=== PATIENT | female | born 1935 | race Caucasian/White ===

== ENCOUNTER 2016-12-23 10:15 | Day surgery (SDC) | payer MEDICARE, OTHER ==
[~2016-12-23] VITALS: Ht 157.5 cm; Wt 48.1 kg
[~2016-12-23 10:15] MED LIST: 0.9% Sodium Chloride 1,000 ML IV SCH; ASCO500C6 PO; ASPI-973 PO; CAND8TAB PO; FELO10TA3 PO; HYDR25TA4 PO; OXYB5TAB PO; POTA-62 PO; Sodium Chloride LOK Flush 10 mL Syringe IV PRN; fentaNYL-PF 50 mCg/mL 2 mL Inj IVPUSH PRN
[2016-12-23 11:06] VITALS: BP 128/71; PULSE 67; RESP 16; O2SAT 97
[2016-12-23 12:52] VITALS: BP 134/69; PULSE 74; RESP 16; O2SAT 99
[2016-12-23 13:02] VITALS: BP 129/79; PULSE 70; RESP 16; O2SAT 99
--- NOTE | 2016-12-23 13:47 | ENDO ---
[address] [address] ENDOSCOPY PROCEDURE PATIENT: SHASHI REDDING : 1935 MR#: [id number] ADMIT: 12/23/2016 JOB ID: [id number] DATE: 12/23/2016 PROCEDURE: Colonoscopy. INDICATION: Altered bowel function. The patient's ASA classification is 2. Mallampati score is 2. MEDICATIONS: 1. Versed 3 mg. 2. Fentanyl 75 mcg. INSTRUMENT USED: PCF H 180 AL PREPARATION QUALITY: Was good. PROCEDURE DETAILS: After informed consent was obtained, the patient was brought into the GI suite, where she was placed on oxygen via nasal cannula and monitored with continuous pulse oximeter, telemetry and blood pressure monitoring. A time-out was performed. Then, she was placed in the left lateral decubitus position. Medications were administered for sedation. Digital rectal examination was performed, which was unremarkable. The colonoscope was then inserted into the rectum and advanced under direct visualization to the cecum, which was identified by the presence of the ileocecal valve and appendiceal orifice. Once the cecum was reached, the colonoscope was withdrawn back into the rectum. Mucosa and lumen were examined. In the rectum, retroflexion was performed. Following retroflexion, remaining air in the rectum was suctioned, and procedure was completed. FINDINGS: 1. In the ascending colon, there was a diminutive polyp that was removed with cold biopsy forceps. 2. Just distal to this, there was a thickened fold that measured approximately 5 mm in length that was removed with cold biopsy forceps. 3. Random biopsies were obtained throughout the colon. 4. There was an approximately 7-8 mm AVM in the transverse colon, that was not actively bleeding and hence as the patient does not have anemia or has complaints of rectal bleeding, this was not treated. 5. There was evidence of a previously placed tattoo in the distal sigmoid colon. IMPRESSION: 1. Ascending colon polyp. 2. Thickened ascending colon fold. 3. 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 4. Previously placed tattoo in the distal sigmoid colon. RECOMMENDATIONS: 1. Followup in GI clinic in 2-4 weeks. 2. Fiber rich diet. COMPLICATIONS: None. ESTIMATED BLOOD LOSS: Less than 5 mL.
--- NOTE | 2016-12-26 12:01 | PATH ---
SURGICAL PATHOLOGY Attending Physician:Melanie Godinez CASE STATUS: Signed Out PATIENT NAME: SHASHI REDDING PID: [id number] : 1935 DATE COLLECTED:12/23/2016 20:48 SPECIMEN: 1: Colon, Biopsy 2: Colon, Polyp 3: Colon, Biopsy CLINICAL HISTORY: 1). THICKENED FOLD ASCENDING COLON 2). ASCENDING POLYP 3). RANDOM COLON BIOPSY FINAL DIAGNOSIS: 1.BIOPSY, ASCENDING COLON (THICKENED FOLD): COLON MUCOSA WITH PROMINENT MUCOSAL AND SUBMUCOSAL LYMPHOID HYPERPLASIA. Negative for significant inflammation. Negative for dysplasia and malignancy. 2.ASCENDING COLON POLYP: TUBULAR ADENOMA. 3.RANDOM COLON BIOPSIES: FRAGMENTS OF NORMAL-APPEARING COLON MUCOSA. Negative for significant architectural distortion. Negative for significant inflammation, dysplasia and malignancy. ICD10 D12.2 GROSS DESCRIPTION: Received are three formalin-filled containers, each labeled with the patient' s name. 1. Received in formalin, labeled with the patient' s name and "thickened fold ascending colon", are multiple fragments of evans, soft tissue ranging in size from 0.1 x 0.1 x 0.1 cm to 0.3 x 0.2 x 0.1 cm. All fragments are totally submitted in cassette 1A. 2. Received in formalin, labeled with the patient' s name and "ascending polyp", is one fragment of evans, soft tissue measuring 0.1 x 0.1 x 0.1 cm. The fragment is totally submitted in cassette 2A. 3. Received in formalin, labeled with the patient' s name and "random colon BX", are multiple fragments of evans, soft tissue ranging in size from 0.1 x 0.1 x 0.1 cm to 0.2 x 0.2 x 0.1 cm. All fragments are totally submitted in cassette 3A. ([id number]) MICRO DESCRIPTION: See diagnosis. ICD-9 CODES: CPT CODES: 1: 13037 2: 79437 3: 22914 Electronically Signed Out Narinder Ahumada MD [facility] [address], [place] [address] Technical component performed at [facility], [address], [place], [address]
== END 2016-12-23 23:59 | disposition home or self-care (01) ==
LOC: END 10:15
PROVIDERS: ATTEND Internal Medicine Gastroenterology
DX: D12.2 Benign neoplasm of ascending colon (principal); K55.20 Angiodysplasia of colon without hemorrhage; I10 Essential (primary) hypertension; Z79.82 Long term (current) use of aspirin
CPT/HCPCS: 45380; 99153; G0500; J2250; J3010; J7030

== ENCOUNTER → 2017-03-03 | Day surgery (SDC) | payer MEDICARE, OTHER ==
[~2017-03-03] VITALS: Ht 157.5 cm; Wt 47.6 kg
[~2017-03-03] MED LIST changes: -0.9% Sodium Chloride 1,000 ML IV SCH; +Atropine 0.4 mg/mL Inj IVPUSH PRN; +Bupivacaine-MPF 0.5% 30 mL Inj INFILTRATE ONE; +CeFAZolin 2 Gm/50 mL D5W Duplex Bag IV ONE; +CeFAZolin Inj 2 GM in IV Premix 1 EACH IV ONE; +Dexamethasone 4 mg/mL Inj IVPUSH PRN; +Dexamethasone 4 mg/mL Inj ONE; +EPHEDrine Sulfate 50 mg/mL Inj IVPUSH PRN; +HYDROcodone-APAP 5-325 mg Tablet PO PRN; +HYDROmorphone 1 mg/mL Inj IVPUSH PRN; +Labetalol 5 mg/mL 20 mL Inj IV PRN; +Lactated Ringer's 1,000 ML IV SCH; +Lactated Ringer's 500 ML IV PRN; +Lidocaine MPF 2%-Epi 1:200,000 20mL Inj NERVEBLOCK ONE; +MetoCLOpramide 5 mg/mL 2 mL Inj IVPUSH PRN; -OXYB5TAB PO; +Ondansetron 2 mg/mL 2 mL Inj IVPUSH PRN; +Ondansetron 2 mg/mL 2 mL Inj ONE; +Phenylephrine 10,000 mCg/mL Inj IVPUSH PRN; +Propofol 10,000 mCg/mL 20 mL Inj ONE; -Sodium Chloride LOK Flush 10 mL Syringe IV PRN; +fentaNYL-PF 50 mCg/mL 2 mL Inj ONE
[2017-03-03] MEDS: Lactated Ringer's 1,000 ML IV SCH ×2 (05:15→11:23)
[2017-03-03 07:36] VITALS: BP 116/70; PULSE 63; RESP 16; O2SAT 98
--- NOTE | 2017-03-03 11:14 | PCM.HPANE ---
Patient Data Date of Service: Mar 03, 2017 Surgeon Admitting Provider: Attending Provider:Tip Osborne DPM Primary Care Physician:Raffi [facility] DO Other Provider:Deb Horton Anesthesia Reason for Visit Left Foot Hallux Valgus,Toe Deformity Ht/WT & BMI Height (Feet): 5 Height (Inches): 2.00 Weight (Kilograms): 47.630 Body Mass Index 19.00 Allergies Coded Allergies: codeine (Verified Adverse Reaction, Mild, NAUSEA, 02/23/17) Past Anesthesia History Anesthesia History: Denies:: Abnormal Airway, Anesthesia Reactions, Difficult Intubation, Fam Anesthesia Reaction, Fam Malignant Hypertherm, Malignant Hyperthermia Diabetes History Hx Diabetes?: No MRSA MRSA: No Medications Blood Thinner: Aspirin Hypertension Medication: Yes Home Meds Incl Beta Salo: No Reported Medications Ascorbic Acid (Vitamin C)500 Mg Capsule.er500 Mg PO DAILY 12/22/16 Potassium Chloride ER 20 Meq Tablet.er20 Meq PO DAILY Ref 0 TAKE WITH FOOD 12/22/16 Hydrochlorothiazide 25 Mg Unptme35 Mg PO DAILY 30 Days Ref 0 12/22/16 Felodipine ER 10 Mg Tab.er.24h10 Mg PO DAILY Ref 0 12/22/16 Candesartan Cilexetil (Atacand)8 Mg Tablet8 Mg PO DAILY 12/22/16 Aspirin 81 Mg Zhmdvt41 Mg PO DAILY Ref 0 12/22/16 History History of ENT Problems?: No HEENT History: Positive for:: Cataracts (bilateral surgery) Glaucoma Denies:: Abnormal Airway Difficult Intubation Dysphagia Hearing Problem Sinus Problem Denture Type: None Teeth Condition: Within Normal Limits Hx of Heart Problems?: Yes Cardiovascular History: Positive for:: Hypertension Denies:: AICD Abdominal Aortic Aneurism Atrial Fibrillation Cardiac Surgery Chest Pain Coronary Artery Disease Edema Heart Murmur Irregular Heartbeat Pacemaker Peripheral Vascular Valvular Heart Disease Hx of Respiratory Problem?: No Respiratory History: Denies:: Asthma COPD Cough Emphysema Hemoptysis Oxygen Administration Pneumonia Tuberculosis Use of C-PAP Machine Use of Inhalers / NEBS Hx Neurologic Problems?: No Neurological History: Denies:: CVA Dementia Headaches Multiple Sclerosis Parkinson's Disease Seizures Hx of GI Problems?: No Hx of Problems?: No Genitourinary History: Denies:: Kidney Stones Urinary Tract Infection Female Hx: Denies:: Currently Problems with Breasts? Skin History: Denies:: History Skin Disorders? Pressure Ulcers Hx Musculoskeletal Problems?: Yes Musculoskeletal History: Positive for:: Musculoskeletal Trauma (left foot hallux valgus, toe deformity) Osteoarthritis (hands) Denies:: Back Injury Fibromyalgia Joint Replacement Myasthenia Gravis Systemic Lupus Hx of Psycho/Social Problems?: No Psycho Social History: Denies:: Anxiety Hx Depression Hx Surgeries?: Yes (APPY, HYSTERECTOMY, CHILDBIRTH) Hx Any Other Health Problems?: Yes Other History: Denies:: Cancer Thyroid Disease History Blood Transfusions: Positive for:: Accept Blood Products? Denies:: Blood Transfusions Hx Diabetes: No Hx Alcohol Use: YesAlcoholic Drinks Per Day: one drink dailyHx Substance Use: No Smoking Status: Never Smoker Have You Smoked inLast 12 mo: No Stop/Bang S-Snoring: Do You Snore Loudly: No T-Tired: feel tired, fatigued: No O-Obsered: Observed not breath: No P-Blood Pressure: treated: Yes B- Body Mass Index > 35 kg/m2: No A- Age over 50: Yes N- Neck Large Circumference: No G- Gender Male: No GEO Total Score: 2 GEO Risk Assessment: Low Risk, <3 Yes Risk Assessment Category Category 1A: Patient has history of documented sleep apnea, and HAS NOT received any narcotic, sedative or anesthesia administration during this stay. Category 1B: Patient has history of documented sleep apnea, and HAS received any narcotic , sedative or anesthesia administration during this stay Category 2: Patient has SUSPECTED Obstructive Sleep Apnea, and HAS received any narcotic , sedative or anesthesia administration during this stay. Category 3: Patient has SUSPECTED Obstructive Sleep Apnea and HAS NOT received narcotic, sedative or anesthesia administration during this stay. Category 4: Outpatient in Procedural Areas with known sleep apnea or who screen positive for High Risk via the STOP/BANG questionnaire. Exam Exam Vital Signs Vital Signs Date Time Temp Pulse Resp B/P Pulse Ox O2 Delivery O2 Flow Rate FiO2 03/03/17 07:36 35.9 63 16 116/70 98 Room Air General Appearance: Alert, Oriented X3, Cooperative, No Acute Distress HEENT/AIRWAY: MP 2 Lungs: Normal Air Movement Heart: Exam Unremarkable Meds/Labs/Diagnostics Admission Meds Current Medications Lactated Ringer's (Lr) 1,000 ml @ 120 mls/hr Q8H20M IV Last administered on 9/ 29/17at 05:15; Start 03/03/17 at 05:00; Stop 03/03/17 at 13:19 Plan Impression Patient chart reviewed, patient interviewed and anesthestic plan with risks, benefits, and alternatives discussed, and informed consent obtained. ASA Physical Status: ASA2 Mod Systemic Disease Anesthetic Plan: MAC Bene/Risks/Altern/Consents: Yes HP Complete Prior to Induction: Yes Adi Sarabia MD Mar 03, 2017 08:27
[2017-03-03 13:22] VITALS: BP 139/71; PULSE 73; RESP 16; O2SAT 96
--- NOTE | 2017-03-03 13:38 | PCM.ANEP1 ---
Post Anesthesia PACU Phase 1 Assessment Vital Signs Vital Signs Date Time Temp Pulse Resp B/P Pulse Ox O2 Delivery O2 Flow Rate FiO2 03/03/17 07:36 35.9 63 16 116/70 98 Room Air Anesthetic Administered: MAC Level of Alertness: Awake, talking HE's with Equal Strength: Yes Pain: No Nausea or Vomiting: No CV Function & Hydration Stable: Yes Airway Device: Oxygen Delivery: Room Air Lungs: Normal Air Movement PACU Phase 2 Assessment Complications: No Follow up Care: N/A Patient Instructions Provided: N/A Adi Sarabia MD Mar 03, 2017 13:38
[2017-03-03 13:40] VITALS: BP 141/69; PULSE 78; RESP 16; O2SAT 98
--- NOTE | 2017-03-04 11:16 | PCM.PODPO ---
Podiatry Operative Report Date of Service: Mar 03, 2017 Date of Service Mar 03, 2017 Pre Operative Diagnosis Hallux valgus left foot Plantar plate rupture left second digit with subluxation of the left second metatarsal phalangeal joint Crossover toe left second toe Post Operative Diagnosis Same as preoperative diagnosis with the addition of osteopenia of the left foot Procedure Correction of bunion deformity with Chevron osteotomy left first metatarsal Left second metatarsal head resection Surgeon Surgeon: Tip Osborne DPM Assistants: None Indication for Procedure Painful crossover toe of the left second digit and hallux valgus Findings Severe osteopenia of the left first and second metatarsal Details of Procedure Patient was identified in the preoperative holding area. All preoperative comorbidities and allergies were identified and thoroughly discussed. The patient was brought into the operating room and placed on the operating room table in the normal supine position. The patient was then prepped and draped in the normal aseptic technique. Attention was first paid to the dorsomedial aspect of the left first metatarsophalangeal joint a curvilinear incision extending approximately 7 cm was made utilizing a #15 blade. Once through the initial layer skin all subcutaneous neurovascular structures were identified and retracted out of the surgical field. Blunt dissection was carried down with a Metzenbaum scissor through subcutaneous tissue to identify deep fascia. A fresh #15 blade was then utilized to incise through deep fascia down to bone throughout the course of the incision. Care was taken to avoid injury to the extensor hallucis longus tendon which was retracted laterally as well as the medial neurovascular structures which were retracted medially. Sharp dissection was continued with a #15 blade to expose the medial eminence with release of the medial collateral ligaments of the first metatarsal phalangeal joint. A sagittal saw was then utilized to resect a portion of the medial eminence taking care not to insult the sagittal groove. The sagittal saw was then utilized to perform a chevron style osteotomy of the distal first metatarsal head the first metatarsal capital fragment was then transitioned laterally approximately 5 mm. A K wire was utilized for temporary fixation. A 1.7 mm drill bit was then utilized to drill through the capital fragment across the osteotomy and a 2.4 mm drill bit was utilized to overdrill the capital fragment. Attempted fixation was performed utilizing a 2.4 mm cortical screw however the screw failed to bite into bone sufficiently for adequate fixation and the 2.4 mm screw was removed a longer screw was attempted which also failed. At this time it was noted that the patient's bone was significantly osteopenic causing difficulty in placing internal fixation. A 3.0 mm Arthrex fully threaded screw was then inserted without additional drilling carefully so as not to fracture surrounding bone adequate purchase was achieved with stable internal fixation. The sagittal saw was then utilized to further resect any remaining medial eminence. A medial capsulorrhaphy was then performed with resection of approximately 1 cm of the medial capsule following completion of the capsulorrhaphy the hallux was stable in normal anatomical position and congruent at the first metatarsal phalangeal joint. This wound was again closely flushed with large amounts of normal saline deep closure was performed utilizing number 3. 0 Vicryl and skin closure was performed utilizing #3. 0 Prolene. Attention was then paid to the left second metatarsal phalangeal joint a linear incision was made approximately 4 cm in length once that initially her skin all subcutaneous neurovascular structures were identified and retracted out of the surgical field the extensor digitorum longus tendon was identified and retracted laterally. Blunt dissection was carried down with a Metzenbaum scissor to identify the capsule surrounding the second metatarsal phalangeal joint a fresh #15 blade was then utilized to incise through the capsular tissue and the medial and lateral collateral ligaments were reflected. A McGlamry's periosteal elevator was used to remove any plantar soft tissue attachments. A sagittal saw was then utilized to perform a maxwell osteotomy of the second metatarsal head. The inferior fragment was translated approximately 4 mm proximal and clamped utilizing the provided bone clamp. An 11 mm snap off screw was then inserted across the osteotomy site at which time the capital fragment and distal aspect of the metatarsal fractured into multiple small fragments. At this time the decision was made to perform a second metatarsal met head resection as additional fixation was unlikely to be successful following removal of all bone fragments the second digit rested in normal anatomical position indicating a successful reduction of the crossover toe deformity. This wound was then copiously flushed with large amounts of normal saline deep closure was performed utilizing number 3. 0 Vicryl and skin closure was performed utilizing number 3. 0 Prolene. The wounds were then dressed with Adaptic Betadine soaked 4 x 4 gauze Kerlix and an Damir bandage. No complications occurred during this procedure other than those previously discussed with internal fixation. The patient was awoken by anesthesia and transported out of the operating room. Grafts, Implants: Implants-See Implant Record Complications There were no periprocedural complications identified. Condition Stable Anesthetic Administered: MAC Catheters: None Output, Estimated Blood Loss: 20 Blood Admin during surgery: No Surgical Cast or Splint: None Surgical Specimen Removed: No Specimen sent to Pathology: No Post Operative Plan Partial weightbearing to left heel with limited activity Keep dressing clean dry and intact Follow-up in 1 week Tip Osborne DPM Mar 04, 2017 11:16
== END | disposition home or self-care (01) ==
LOC: SAS 07:09
PROVIDERS: ATTEND Podiatrist Foot & Ankle Surgery
DX: M20.12 Hallux valgus (acquired), left foot (principal); M20.5X2 Other deformities of toe(s) (acquired), left foot; S89.92XA Unspecified injury of left lower leg, initial encounter; I10 Essential (primary) hypertension; Z79.82 Long term (current) use of aspirin
CPT/HCPCS: 28296; 28308; 28313; C1713; J0690; J1100; J2405; J2704; J3010; J7120